=== PATIENT | male | born 1955 | race African-American/Black ===

== ENCOUNTER 2020-02-21 17:57 | Emergency (ER) | payer OTHER, SELFPAY ==
[2020-02-21 17:58] VITALS: BP 162/138; PULSE 127; RESP 25; TEMP 36.9; O2SAT 83; BMI 22.0
--- NOTE | 2020-02-21 18:00 | ECG_ITS ---
APPROVED REPORT Exam: Resting ECG HR:110 bpm ECG Measurements Heart Rate 110 AXES IA 118 P 90 QRSd 76 QRS 99 QT 330 T 61 QTc 446 <Conclusion> Suspect arm lead reversal, interpretation assumes no reversal Sinus tachycardia Possible Left atrial enlargement Rightward axis Pulmonary disease pattern Septal infarct, age undetermined Abnormal ECG Electronically signed by : Stephane Tristan, 02/24/2020 04:53:11
--- NOTE | 2020-02-21 18:07 | XR_ITS ---
PROCEDURE: XR CHEST PORTABLE CLINICAL HISTORY: cough Severe shortness of breath and cough COMPARISON: No exams were available for comparison FINDINGS: The cardiomediastinal silhouette and pulmonary vascularity are within normal limits. COPD changes. No lobar consolidation or collapse No acute bony abnormalities. IMPRESSION: COPD, no acute finding Dictated by: Abimael Rich MD 02/22/2020 08:19 Electronically signed by Abimael Rich MD in [place] 02/22/2020 08:19
[2020-02-21 18:11] LABS: ABG HCO3 25.8 mmhg (22.0-26.0); ABG Oxygen Saturation 96 % (90-100); ABG PH 7.28 mmol/L (7.35-7.45); ABG PO2 84.5 mmhg (80-100); ABG TCO2 27.5 mmhg (23-27)
[2020-02-21 18:14] LABS: Allen's Test Acceptable; Source Left Radial
[2020-02-21 18:14] LABS: Basophils # 0.1 K/mm3 (0-0.2); Basophils % 0.4 % (0.1-2.0); Chloride 103 mmol/L (98-107); Eosinophils # 0.3 K/mm3 (0.0-0.4); Eosinophils % 2.1 % (0.1-12.0); Hematocrit 52.3 % (42.0-52.0); Hemoglobin 17.1 g/dL (14.1-18.0); Lymphocytes # 3.2 K/mm3 (0.7-4.5); Lymphocytes % 20.3 % (10-50); Mean Corpuscular HGB Conc 32.7 g/dL (31.8-35.4); Mean Corpuscular Hemoglobin 32.3 pg (27.0-31.2); Mean Corpuscular Volume 98.7 fl (80-94); Mean Platelet Volume 7.8 fl (7.4-10.4); Monocytes # 0.8 K/mm3 (0.1-1.0); Monocytes % 4.8 % (1.7-9.3); Neutrophils # 11.3 K/mm3 (1.8-7.8); Neutrophils % 72.3 % (37.0-80.0); Platelet Count 314 K/mm3 (142-424); Potassium 3.9 mmoL/L (3.5-5.1); Red Cell Distribution Width 12.8 % (11.5-17.5); Sodium 140 mmol/L (136-145); White Blood Count 15.7 K/mm3 (4.8-10.8)
[2020-02-21 18:16] LABS: ABG PCO2 56.4 mmhg (35.0-45.0)
[2020-02-21 18:17] LABS: Blood Urea Nitrogen 15 mg/dl (9-20); Estimated Glomerular Filt Rate 75 ml/min (>60); GFR (African American) 91 ML/MIN (>60)
[2020-02-21 18:18] LABS: Anion Gap 10.9 mEq/L (5-15); Carbon Dioxide 30 mmol/L (22.0-30.0); MANUAL DIFFERENTIAL MANUAL DIFFERENTIAL (MANUAL DIFF)
[2020-02-21 18:23] LABS: Calcium 9.6 mg/dl (8.4-10.2)
[2020-02-21 18:28] VITALS: BP 149/87; PULSE 100; RESP 25; O2SAT 100
[2020-02-21 18:31] LABS: Eosinophils % 1 % (0-3); Glucose 128 mg/dl (74-100); Lymphocytes % 18 % (10-50); Monocytes % 3 % (2-9); Neutrophils % 78 % (42-76); Platelet Estimate Normal; RBC Morphology Normal; Total Cells Counted 100; Troponin I < 0.01 ng/ml (0.00-0.034)
--- NOTE | 2020-02-21 18:31 | [facility].EDSOB ---
ED Disposition Clinical Impression: COPD exacerbation Disposition: Home, Self-Care Condition on Discharge: Good Instructions: DI for Chronic Obstructive Pulmonary Disease Prescriptions: Albuterol Sulfate [Proventil-HFA 90mcg/puff Inh] 1 - 2 puffs IH Q4HP PRN #1 inh PRN Reason: Wheezing Prescription Printed Doxycycline Hyclate [Doxycycline 100mg Capsule] 100 mg PO Q12 #20 cap Prescription Printed methylPREDNISolone [Medrol 4mg tab] 4 mg PO DIRECTED #21 tab Prescription Printed Referrals: Josh Vogt MD [Staff Physician] - 3 days - Critical Care Critical Care Time: No Attestation: On , the high probability of a clinically significant, sudden or life threatening deterioration of the following system(s) required my full and direct attention, intervention and personal management. The time I documented below is in addition to time spent performing reported procedures but includes the following listed in this critical care notation. Medical Decision Making - Dash Inquiry Pt receiving controlled substance: No Vital Signs: 02/21/20 17:58 02/21/20 18:28 02/21/20 18:37 Temperature 98.4 F Temperature Source Oral Pulse Rate 113 H Pulse Rate [Right] 127 H 100 H Respiratory Rate 25 H 25 H Blood Pressure [Right Arm] 162/138 H 149/87 H Blood Pressure Mean [Right Arm] 146 107 Blood Pressure Source [Right Arm] Automatic Cuff Blood Pressure Position [Right Arm] Sitting 02 Sat by Pulse Oximetry 83 L 100 Oxygen Delivery Method Room Air Room Air Oxygen Flow Rate (LPM) 2 02/21/20 18:59 Temperature Temperature Source Pulse Rate Pulse Rate [Right] 109 H Respiratory Rate 20 Blood Pressure [Right Arm] 148/85 H Blood Pressure Mean [Right Arm] 106 Blood Pressure Source [Right Arm] Automatic Cuff Blood Pressure Position [Right Arm] Sitting 02 Sat by Pulse Oximetry 94 L Oxygen Delivery Method Nasal Cannula Oxygen Flow Rate (LPM) 2 - Lab Data Lab Results 02/21/20 18:01: WBC 15.7 H, RBC 5.30, Hgb 17.1, Hct 52.3 H, MCV 98.7 H, MCH 32.3 H, MCHC 32.7, RDW 12.8, Plt Count 314, MPV 7.8, Neut % (Auto) 72.3, Lymph % (Auto) 20.3, [place] % (Auto) 4.8, Eos % (Auto) 2.1, Baso % (Auto) 0.4, Neut # (Auto) 11.3 H, Lymph # (Auto) 3.2, [place] # (Auto) 0.8, Eos # (Auto) 0.3, Baso # (Auto) 0.1, Total Counted 100, Neutrophils % (Manual) 78 H, Lymphocytes % (Manual) 18, Monocytes % (Manual) 3, Eosinophils % (Manual) 1, Platelet Estimate Normal, RBC Morphology Normal 02/21/20 18:01: Sodium 140, Potassium 3.9, Chloride 103, Carbon Dioxide 30, Anion Gap 10.9, BUN 15, Creatinine 1.00, Estimated GFR 75, Est GFR ( Amer) 91, Glucose 128 H, Calcium 9.6, Troponin I < 0.01 02/21/20 18:01: Lactate 1.5 02/21/20 18:06: Specimen Source Left radial, O2 % 28%,2l nc, ABG pH 7.28 L, ABG pCO2 56.4 H, ABG pO2 84.5, ABG HCO3 25.8, ABG Total CO2 27.5 H, ABG O2 Saturation 96, ABG Base Excess -1.0, Abimael Test Acceptable Result diagrams: 02/21/20 18:01 02/21/20 18:01 Orders (Tests/Meds): ED MEDICATIONS Generic Name Dose Route Start Last Admin Trade Name Freq PRN Reason Stop Dose Admin Albuterol Sulfate 2 puffs 02/21/20 18:35 02/21/20 18:36 Proventil-Hfa 90mcg/Puff Inhaler 03/22/20 18:34 2 puffs Q4HP PRN Administration Shortness Of Breath Discontinued Medications Generic Name Dose Route Start Last Admin Trade Name Freq PRN Reason Stop Dose Admin Albuterol/Ipratropium 3 ml 02/21/20 18:07 02/21/20 18:33 Duoneb 3ml Neb IH 02/21/20 18:08 3 ml ONCE ONE Administration Methylprednisolone Sodium Succinate 125 mg 02/21/20 18:08 02/21/20 18:36 Solu-Medrol 125mg/2ml Vial IV 02/21/20 18:09 125 mg ONCE ONE Administration Miscellaneous 1 unit 02/21/20 18:33 02/21/20 18:34 Aerochamber/Optihaler MC 02/21/20 18:34 1 unit ONCE ONE Administration ORDERS Category Date Time Status XR chest portable Stat Exams 02/21/20 18:07 Taken Blood Culture Stat Micro 02/21/20
[2020-02-21 18:37] VITALS: PULSE 102; PULSE 113
[2020-02-21 18:42] LABS: Lactic Acid 1.5 mmol/L (0.7-2.1)
[2020-02-21 18:59] VITALS: BP 148/85; PULSE 109; RESP 20; O2SAT 94
[2020-02-21 19:39] VITALS: BP 139/76; PULSE 105; RESP 18; O2SAT 94
[2020-02-21 19:48] VITALS: BP 157/83; PULSE 101; RESP 19; TEMP 36.8; O2SAT 92
== END 2020-02-21 19:53 | disposition home or self-care (01) ==
PROVIDERS: Emergency Provider Emergency Medicine; PCP Physician Assistant
DX: J44.1 Chronic obstructive pulmonary disease with (acute) exacerbation (principal); F17.210 Nicotine dependence, cigarettes, uncomplicated
CPT/HCPCS: 71045; 80048; 82803; 83605; 84484; 85007; 85025; 87040; 93005; 96374; 99284